=== PATIENT | female | born 1970 | race Caucasian/White ===

== ENCOUNTER → 2020-03-02 11:08 | Outpatient (BNVA) | payer MEDICARE, SELFPAY | PROVIDERS: Family Provider Family Medicine; PCP Family Medicine; Visit Provider Family Medicine | DX: R21 Rash and other nonspecific skin eruption (principal); R53.83 Other fatigue; K21.9 Gastro-esophageal reflux disease without esophagitis; M54.5 Low back pain; F41.1 Generalized anxiety disorder; F51.04 Psychophysiologic insomnia; H93.13 Tinnitus, bilateral; L24.9 Irritant contact dermatitis, unspecified cause; M62.830 Muscle spasm of back; Z13.21 Encounter for screening for nutritional disorder | CPT/HCPCS: 80053; 82607; 82652; 82728; 83550; 84439; 84443; 84481; 85025; 85651; 86140 ==